=== PATIENT | male | born 1945 | race Caucasian/White ===

== ENCOUNTER 2016-08-02 10:17 | Emergency (ER) | payer OTHER ==
[2016-08-02 10:23] VITALS: TEMP 98.2
--- NOTE | 2016-08-02 11:15 | EDPHY ---
H & P Stated Complaint: SWELLING AND PAIN L LEG Time Seen by Provider: 08/02/16 11:00 HPI/ROS: HPI: 70-year-old gentleman presents to emergency department with chief concern left leg pain and swelling. Reports up to 7/10 aching left leg pain in the anterior and posterior lower leg, and left thigh that onset 2 weeks ago and has gradually worsened. Golfed for several days and developed left leg swelling. Denies fever, chills, myalgias, dizziness, headache, shortness of breath, chest pain, nausea, vomiting, erythema. Denies recent extended travel. 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 Took Xarelto ultimately for 10 [address] Primary care provider Dr. Brady. Denies significant past medical history. Only home medication is aspirin. ROS:10 point review of systems is negative other than as stated in HPI Source: Patient Exam Limitations: No limitations - Personal History Current Tetanus/Diphtheria Vaccine: Yes Tetanus Vaccine Date: < 10 YEARS - Medical/Surgical History Hx Asthma: No Hx Chronic Respiratory Disease: No Hx Diabetes: No Hx Cardiac Disease: No Hx Renal Disease: No Hx Cirrhosis: No Hx Alcoholism: No Hx HIV/AIDS: No Hx Splenectomy or Spleen Trauma: No Other PMH: Orthopedic surgerys, spinal fusion, Mortons neuroma BL feet. r hip replacement, r shoulder surgery, DVT L leg 2015 - Family History Significant Family History: No pertinent family hx - Social History Smoking Status: Never smoked Alcohol Use: Occasionally Drug Use: None - Physical Exam Exam: Vital signs stable, reviewed by me General: Awake, alert, calm, cooperative. No acute distress. Head: Normalocephalic. Atraumatic. EENT: PERRLA. EOMI. No pallor or injection. Anicteric. No nystagmus. No injection. Neck: Supple, nontender. No lymphadenopathy. Full range of motion. Respiratory: Breathing unlabored. Breath sounds equal bilaterally and clear to auscultation. No adventitious sounds. CV: Chest nontender, atraumatic. Heart rate regular. No murmur, distal pulses 2+ bilaterally. Brisk cap refill all extremities. Trace edema left ankle. GI: Abdomen soft, nontender. Bowel sounds normoactive and positive x4 quadrants. Neuro: Alert. Oriented x 3. Speech clear. Nonfocal cranial nerves throughout. Sensation intact all extremities. Skin: Skin warm, dry, intact. Extremities: Negative Homans sign however positive left calf pain to palpation. No significant calf swelling. Full range of motion all extremities. Constitutional: Initial Vital Signs Temperature (C) 36.8 C 08/02/16 10:20 Heart Rate 45 L 08/02/16 10:20 Respiratory Rate 16 08/02/16 10:20 Blood Pressure 145/71 H 08/02/16 10:20 O2 Sat (%) 98 08/02/16 10:20 O2 Delivery Mode Room Air Allergies/Adverse Reactions: naproxen Allergy (Verified 08/02/16 10:24) alleve Allergy (Uncoded 08/02/16 10:24) Home Medications: Medication Instructions Recorded ASPIRIN 08/02/16 Medical Decision Making - Diagnostics Imaging Results: Imaging Impressions Extremity Venous Study 08/02/16 11:01 Impression: No deep venous thrombosis left leg. Results called and discussed with Stacey Melo NP at 08/02/2016 11:36. ED Course/Re-evaluation: 1115: 70-year-old male presents to ED with chief concern left calf/left leg pain and swelling. Onset 2 weeks ago. Has a history of unprovoked DVT. Ultrasound in progress. Patient demonstrates no clinical signs of pulmonary embolism. 1142: Ultrasound negative for evidence of DVT. Patient discharged to follow up with primary care. On arrival to ED, pulse 45. Patient's resting pulse is 50s as he was a ultra athlete for many years. He has no shortness of breath, chest pain, dizziness, or other concerning symptoms. Differential Diagnosis: Differential diagnosis includes but is not limited to DVT, musculoskeletal strain, claudication, arthritis Departure - Departure Disposition: Home, Routine, Self-Care Clinical Impression: Leg pain, left Condition: Good Instructions: Leg Pain (ED) Additional Instructions: Plan: Ultrasound negative for evidence of deep vein thrombosis. Please follow up with primary care within the next 1-2 days for recheck without fail--When you call to schedule appointment, please let the office know you are an "ER follow up" appointment" Activity as tolerated May continue to use ibuprofen as needed for discomfort, take with food, stay well hydrated while using, use for shortest duration possible Referrals: Dorian Devine MD [Primary Care Provider] - As per Instructions
[2016-08-02 11:52] VITALS: BP 151/88; PULSE 43; RESP 18; O2SAT 96
== END 2016-08-02 11:52 | disposition home or self-care (01) ==
DX: M79.662 Pain in left lower leg (principal)

== ENCOUNTER → 2017-12-18 | Outpatient (CLI) | payer OTHER | LOC: FIMAGING 11:04 | PROVIDERS: ATTEND Internal Medicine Pulmonary Disease | DX: I27.20 Pulmonary hypertension, unspecified (principal) ==

== ENCOUNTER → 2018-01-17 | Outpatient (CLI) | payer OTHER | LOC: FIMAGING 09:26 | PROVIDERS: ATTEND Family Medicine | DX: M79.89 Other specified soft tissue disorders (principal) ==